=== PATIENT | female | born 1995 | race Caucasian/White ===

== ENCOUNTER 2017-07-31 17:02 | Inpatient (IN) | payer OTHER ==
--- OUTSIDE RECORDS SUMMARY | 2017-07-31 17:05 | XMS | Clinical Summary ---
:1995 Author Organization [facility] Address [address] [place] [address] Phone Care Team Providers Name Role Phone , Primary Care Provider Unavailable Allergies No Known Allergies Current Medications Prescription Sig. Disp. Refills Start Date End Date Status vitamin Take 1 tablet by Active w/nqpelww-ibda-ezhmol mouth daily. ( PLUS) 27 mg iron- 1 mg TabIndications: acetaminophen (TYLENOL) Take 650 mg by Active 325 MG tablet mouth every 6 (six) hours as needed for Fever. ALPRAZolam (XANAX) 1 MG Take 1 mg by mouth Active tablet 3 (three) times daily as needed for Anxiety. Active Problems Problem Noted Date Rubella non-immune status, antepartum 03/08/2017 Family history of achondroplasia 02/08/2017 Bipolar 1 disorder (HCC) 02/08/2017 Abdominal pain 10/27/2014 Fever 10/27/2014 Influenza A 10/27/2014 Currently Estimated Date of Delivery Comments Yes 08/01/2017 Based on Ultrasound Family History Medical History Relation Name Comments Unremarkable Father Unremarkable Maternal Grandfather Unremarkable Maternal Grandmother Unremarkable Mother Unremarkable Paternal Grandfather Unremarkable Paternal Grandmother Relation Name Status Comments Father Maternal Grandfather Maternal Grandmother Mother Paternal Grandfather Paternal Grandmother Social History Tobacco Use Types Packs/Day Years Used Date Former Smoker Quit: 05/30/2014 Smokeless Tobacco: Never Used Alcohol Use Drinks/Week oz/Week Comments No Currently Estimated Date of Delivery Comments Yes 08/01/2017 Based on Ultrasound Sex Assigned at Date Recorded Not on file Last Filed Vital Signs Vital Sign Reading Time Taken Blood Pressure 128/80 2017 1:56 PM CDT Pulse 99 02/03/2017 3:39 PM CDT Temperature 36.8 C (98.2 F) 02/03/2017 3:39 PM CDT Respiratory Rate 20 02/03/2017 3:39 PM CDT Oxygen Saturation 99% 02/03/2017 9:00 PM CDT Inhaled Oxygen Concentration - - Weight 100.2 kg (221 lb) 2017 1:56 PM CDT Height 170.2 cm (5' 7") 2017 1:56 PM CDT Body Mass Index 34.61 2017 1:56 PM CDT Plan of Treatment Health Maintenance Due Date Last Done Comments INFLUENZA VACCINE 07/30/2017 Results Not on filefrom Last 3 Months
[2017-07-31 17:52] VITALS: BMI 36.5
[2017-07-31] MEDS ORDERED: FLU VACC QS2017-18 36 mo. & older 0.5 ML SYRINGE IM ONE (18:00)
[2017-07-31 18:40] LABS: Amnisure Test No Membranes Rupture (No Rupture)
--- NOTE | 2017-07-31 20:41 | PDOC.LDHP ---
Labor and Delivery H&P Chief complaint: contractions, loss of fluid HPI: niesha transfer at 20+ wk Current gestational age (weeks): 39 Due date: 08/05/17 Dating criteria: last menstrual period, first trimester ultrasound Grav: 2 Para: 1 OB History Details: dwarf first baby. normal sono this preg. Current complications: none Abnormal US findings: No Current medications: pre-hung vitamins Previous surgical history: none Allergies/Adverse Reactions: Allergies Allergy/AdvReac Type Severity Reaction Status Date / Time No Known Allergies Allergy Verified 07/31/17 17:47 Social history: none - Physical Exam Vital signs reviewed and normal: yes General: NAD, resting, breathing through contractions Heart: RRR Lungs: CTAB Abdomen: NTTP Extremeties: no edema FHT: category 1 [place] contractions every: 3 - Vaginal Exam cm dilated: 4 Effacement: 100% Station: 0 - OB Labs Blood type: A RH: positive HIV: negative RPR: negative HEPSAg: negative 1 hour GCT: negative GBS: negative Additional Labs: rubella non immune - Assessment L&D Assessment: term rupture in membranes - Plan Plan: admit to L&D, anesthesia consult for pain management
[2017-07-31] MEDS: Lactated Ringer's 1,000 ML IV SCH (21:10)
[2017-07-31] MEDS ORDERED: HYDROcodone/Acetaminophen 5/325 mg Tablet PO PRN ×2 (21:15)
[2017-07-31] MEDS ORDERED: Ondansetron HCl/PF 4 MG/2 ML Vial IVP PRN ×2 (21:15→22:42)
[2017-07-31] MEDS ORDERED: Carboprost 250 MCG/ML AMP IM PRN (21:15)
[2017-07-31] MEDS ORDERED: Promethazine HCl 25 MG/ML VIAL IM PRN ×2 (21:15→22:42)
[2017-07-31] MEDS ORDERED: LR 500 ML/Oxytocin 10 units 500 ML IV SCH (21:15)
[2017-07-31] MEDS ORDERED: Ibuprofen 800 MG TAB PO PRN (21:15)
[2017-07-31] MEDS ORDERED: Zolpidem Tartrate 5 MG TAB PO PRN (21:15)
[2017-07-31] MEDS ORDERED: Lidocaine 1% (PF) 30 ML VIAL SC PRN (21:15)
[2017-07-31] MEDS ORDERED: Diphenoxylate HCl/Atropine Tablet PO PRN (21:15)
[2017-07-31 21:22] LABS: Hematocrit 45.9 % (36.0-47.0); Mean Platelet Volume 7.5 fL (7.4-10.4); White Blood Cell (WBC) Count 12.5 thou/uL (4.8-10.8)
[2017-07-31] MEDS ORDERED: Fentanyl 4 mcg/Marc 0.1% Cadd 100 ML ONE (21:29)
[2017-07-31] MEDS ORDERED: Lactated Ringer's 1,000 ML IV SCH (21:30)
[2017-07-31] MEDS ORDERED: Naloxone HCl 0.4 mg/ml Vial IVP PRN ×2 (22:42)
[2017-07-31] MEDS ORDERED: Lactated Ringer's 500 ML IV PRN (22:42)
[2017-07-31] MEDS ORDERED: Acetaminophen 325 MG TAB PO PRN (22:42)
[2017-07-31] MEDS ORDERED: ePHEDrine/0.9% NaCl/PF SYRINGE 50 mg/10 ml SLOW IVP PRN (22:42)
[2017-07-31] MEDS ORDERED: diphenhydrAMINE HCl 50 MG/ML 1 ML VIAL IVP PRN (22:42)
[2017-07-31] MEDS ORDERED: Hydrocerin (Eucerin) Cream 120 gm Jar TOP PRN (22:42)
[2017-07-31] MEDS ORDERED: Fentanyl 4mcg/Marcaine 0.1% Cassette 100 ML EPIDURAL SCH (22:45)
[2017-07-31] MEDS ORDERED: Communication Order-Pharmacy FS SCH (22:45)
--- NOTE | 2017-08-01 00:13 | PDOC.OPDEL ---
OB Operative/Delivery Note Delivery Dr/Surgeon: Juventino Chandler Pre-Delivery Diagnosis: active labor Procedure/Post Delivery Dx: spontaneous vaginal delivery Weeks gestation: 39 Anesthesia: epidural - Findings A Sex: female Weight: 0 oz - 5 min: 9 - Additional Findings/Plan Placenta delivered: spontaneous Repaired Obstetrical Laceration: none Estimated blood loss: 300 Compilations/Other Findings: possible marginal abruption . sent for path Post delivery plan: routine recovery
[2017-08-01] MEDS: Lactated Ringer's 1,000 ML IV SCH (00:42)
[2017-08-01] MEDS: LR / Pitocin 40 units/1000 ml 1,000 ML IV PRN ×2 (01:42)
[2017-08-01] MEDS ORDERED: HYDROcodone/Acetaminophen 5/325 mg Tablet PO PRN ×2 (03:07)
[2017-08-01] MEDS ORDERED: Bisacodyl 10 MG SUPP PR PRN (03:07)
[2017-08-01] MEDS ORDERED: Zolpidem Tartrate 5 MG TAB PO PRN (03:07)
[2017-08-01] MEDS ORDERED: Ondansetron HCl/PF 4 MG/2 ML Vial IVP PRN (03:07)
[2017-08-01] MEDS ORDERED: Milk Of Magnesia 30 ML UDCUP PO PRN (03:07)
[2017-08-01] MEDS ORDERED: Preparation H Ointment 28 GM TUBE PR PRN (03:07)
[2017-08-01] MEDS ORDERED: Adacel (T-DAP) 0.5 ML VIAL IM ONE (03:07)
[2017-08-01] MEDS ORDERED: LR / Pitocin 40 units/1000 ml 1,000 ML IV SCH (03:07)
[2017-08-01] MEDS ORDERED: Lanolin Ointment 7 GM TUBE TOP PRN (03:07)
[2017-08-01] MEDS ORDERED: Benzocaine/Menthol 20-0.5% 60 ML CAN TOP PRN (03:07)
[2017-08-01] MEDS ORDERED: diphenhydrAMINE HCl 25 MG CAP PO PRN (03:07)
[2017-08-01] MEDS: Ibuprofen 800 MG TAB PO SCH ×3 (05:02→21:54)
--- NOTE | 2017-08-01 09:09 | PDOC.PP ---
Post Progress Note Post Day #: 1 -: Doing well. Moderate lochia. Minimal pain. PO intake tolerated: yes Flatus: yes Ambulation: yes Vital Signs (12 hours) Temp Pulse Resp BP 08/01/17 04:00 98.6 F 87 18 08/01/17 03:15 98.6 F 87 18 108/66 08/01/17 02:30 98.3 F 87 18 127/58 L 07/31/17 21:57 99.5 F 99 24 H Weight Weight 233 lb - Physical Examination General: NAD Cardiovascular: RRR Respiratory: clear to ausculation bilateral Abdominal: no distention, appropriately TTP Fundus firm & at: below umbilius Extremities: negative homans (B) Skin: no rash Neurological: no gross focal deficits Psychiatric: A&Ox3 Result Diagrams: 07/31/17 21:10 Additional Labs: Post Labs Blood Type A POSITIVE 07/31/17 21:10 Hep Bs Antigen Non-Reactive S/CO (NonReactive) 07/31/17 21:10 (1) Vaginal delivery Code(s): O80 - ENCOUNTER FOR FULL-TERM UNCOMPLICATED DELIVERY Status: Acute - Assessment/Plan Continue post care. Plan for d/c tomorrow. in NICU due to difficulty transitioning, NICU notified of need for EKG due to PACs seen on sono approx 4 weeks ago during antepartum course.
[2017-08-01] MEDS: Ferrous Sulfate 325 MG TAB PO SCH ×2 (09:19→18:46)
[2017-08-01] MEDS: Docusate (Surfak) 240 MG CAP PO SCH ×2 (09:20→21:54)
[2017-08-01] MEDS: Prenatal Vitamin 1 TAB PO SCH (09:20)
[2017-08-01] MEDS ORDERED: ePHEDrine/0.9% NaCl/PF SYRINGE 50 mg/10 ml ONE (14:57)
[2017-08-01] MEDS ORDERED: Bupivacaine 0.25% HCL 30 ML VIAL ONE (14:57)
[2017-08-02] MEDS: Lactated Ringer's 1,000 ML IV SCH ×2 (02:54→02:55)
[2017-08-02] MEDS: Ibuprofen 800 MG TAB PO SCH ×2 (06:01→13:04)
[2017-08-02 08:02] VITALS: BP 112/58; TEMP 98.6
[2017-08-02] MEDS ORDERED: traMADol HCl 50 MG TAB PO PRN (08:20)
--- NOTE | 2017-08-02 08:24 | PDOC.PP ---
Post Progress Note Post Day #: 2 -: Doing well. Lochia improved. Denies any pain. No SOB, palpitations. PO intake tolerated: yes Flatus: yes Ambulation: yes Vital Signs (12 hours) Temp Pulse Resp BP 08/02/17 08:00 98.6 F 74 20 112/58 L 08/02/17 07:45 98.6 F 74 20 08/01/17 23:00 97.9 F 86 18 110/64 08/01/17 20:30 97.9 F 103 H 21 H 116/69 Weight Weight 233 lb - Physical Examination General: NAD Cardiovascular: RRR Respiratory: clear to ausculation bilateral Abdominal: no distention, appropriately TTP Fundus firm & at: below umbilius Extremities: negative homans (B) Skin: no rash Neurological: no gross focal deficits Psychiatric: A&Ox3 Result Diagrams: 07/31/17 21:10 Additional Labs: Post Labs Blood Type A POSITIVE 07/31/17 21:10 Hep Bs Antigen Non-Reactive S/CO (NonReactive) 07/31/17 21:10 (1) Vaginal delivery Code(s): O80 - ENCOUNTER FOR FULL-TERM UNCOMPLICATED DELIVERY Status: Acute - Assessment/Plan Doing well. Noted slight tachycardia overnight, now improved. Complete H/H prior to discharge. If wnl, d/c home today.
[2017-08-02 08:33] LABS: Hematocrit 33.1 % (36.0-47.0); Mean Platelet Volume 7.2 fL (7.4-10.4); Red Blood Cell (RBC) Count 3.37 mill/uL (4.20-5.40)
[2017-08-02] MEDS: Ferrous Sulfate 325 MG TAB PO SCH (08:54)
[2017-08-02] MEDS: Docusate (Surfak) 240 MG CAP PO SCH (08:54)
[2017-08-02] MEDS: Prenatal Vitamin 1 TAB PO SCH (08:54)
[2017-08-02] MEDS ORDERED: Measles/Mumps/Rubella 10 MCG/0.5 ML VIAL SC ONE (21:00)
== END 2017-08-02 17:15 | disposition home or self-care (01) | DRG 774 ==
LOC: L&D/OP 17:02 → L&D 20:59 → 3SW 08-01 02:35
PROVIDERS: ADMIT Obstetrics & Gynecology; ATTEND Obstetrics & Gynecology
PROC: 10E0XZZ Delivery of Products of Conception, External Approach (ICD-10-PCS; principal; 2017-08-01)
DX: O45.93 Premature separation of placenta, unspecified, third trimester (principal); Z37.0 Single live birth; Z3A.39 39 weeks gestation of pregnancy
CPT/HCPCS: 36415; 84112; 85027; 86780; 87340; 88307; S0020

== ENCOUNTER 2022-12-08 10:28 | Outpatient (CLI) | payer OTHER | END 2022-12-08 10:29 | disposition home or self-care (01) | LOC: BICULT 10:28 | PROVIDERS: ATTEND Family Medicine | DX: E04.9 Nontoxic goiter, unspecified (principal); E04.1 Nontoxic single thyroid nodule | CPT/HCPCS: 76536 ==

== ENCOUNTER 2023-03-14 08:36 | Outpatient (CLI) | payer BC, OTHER ==
[2023-03-14 09:21] LABS: BHCG - Serum Negative (NEGATIVE); Pregs Control Background? CLEAR/WHITE (CLR/WHITE); Pregs Control Bar Appear? YES (CONTROL BAR)
[2023-03-14] MEDS ORDERED: Iopamidol 370 76% 100 ML VIAL ONE (09:40)
== END 2023-03-14 08:37 | disposition home or self-care (01) ==
LOC: CT 08:36
PROVIDERS: ATTEND Internal Medicine Gastroenterology
DX: Z32.00 Encounter for pregnancy test, result unknown (principal); R10.13 Epigastric pain; R79.0 Abnormal level of blood mineral; K58.0 Irritable bowel syndrome with diarrhea; K86.89 Other specified diseases of pancreas
CPT/HCPCS: 74160; 84703; Q9967